=== PATIENT | female | born 1970 | race Caucasian/White ===

== ENCOUNTER 2021-08-09 06:24 | Day surgery (SDC) | payer BC ==
[2021-08-09] MEDS ORDERED: Sodium Chloride 0.9% 1,000 ML IV SCH (07:00)
[2021-08-09] MEDS ORDERED: Midazolam 1 MG/ML 2 ML SDV ONE (07:27)
[2021-08-09] MEDS ORDERED: Propofol 200 MG/20 ML SDV ONE ×2 (07:27→08:15)
[2021-08-09] MEDS ORDERED: fentaNYL 100 MCG/2 ML SDV ONE (07:27)
[2021-08-09 09:55] VITALS: BP 110/69; PULSE 72
--- NOTE | 2021-08-10 06:29 | OR ---
DATE OF PROCEDURE: 08/09/2021 SURGEON: Dima Sandoval MD PROCEDURE: Colonoscopy. FINDINGS: Significantly tortuous sigmoid colon precluding advancement of scope. PREOPERATIVE DIAGNOSIS: Positive Cologuard test. POSTOPERATIVE DIAGNOSIS: Positive Cologuard test. RISKS: Risks, benefits, alternatives, and limitations including, but not limited to infection, bleeding, perforation, false positives and false negatives were explained. The patient wished to proceed. PROCEDURE IN DETAIL: The patient was placed in the left lateral decubitus position. Digital rectal exam was performed without abnormality. Scope was introduced and advanced atraumatically. The patient had a significantly tortuous colon according to [employer]. This appeared to be a 360-degree loop. This was unable to be traversed despite multiple attempts. The scope was not blindly advanced. Over the next approximately 30 minutes, scope was attempted to gently be advanced but was unable to be completed. The patient will be sent to a higher facility with additional testing and equipment. Dima Sandoval MD /[id number]
== END 2021-08-09 10:20 | disposition home or self-care (01) ==
LOC: JP.SDS 06:24
PROVIDERS: ATTEND Surgery
DX: R19.5 Other fecal abnormalities (principal)
CPT/HCPCS: 45330; 81025; J2250; J2704; J3010; J7030

== ENCOUNTER 2022-02-03 18:39 | Emergency (ER) | payer BC ==
[2022-02-03 19:08] VITALS: BP 164/75; PULSE 81
== END 2022-02-03 19:31 | disposition home or self-care (01) ==
LOC: JP.ED 18:39
DX: S93.402A Sprain of unspecified ligament of left ankle, initial encounter (principal); X50.1XXA Overexertion from prolonged static or awkward postures, initial encounter
CPT/HCPCS: 73610-26-LT; 73610-LT; 99283

== ENCOUNTER 2023-11-03 10:19 | Emergency (ER) | payer BC ==
[2023-11-03] MEDS ORDERED: Methocarbamol 500 MG Tab PO ONE (11:11)
[2023-11-03] MEDS ORDERED: Ketorolac 30 MG/ML SDV IM ONE (11:11)
[2023-11-03 11:53] LABS: APPEARANCE,URINE CLEAR (CLEAR); BILIRUBIN,URINE NEGATIVE (NEGATIVE); COLOR,URINE YELLOW (YELLOW); GLUCOSE,URINE NEGATIVE (NEGATIVE); KETONES,URINE TRACE mg/dL (NEGATIVE); LEUKOCYTE ESTERASE,URINE NEGATIVE (NEGATIVE); NITRITE,URINE NEGATIVE (NEGATIVE); OCCULT BLOOD,URINE TRACE-INTACT (NEGATIVE); PH,URINE 5.5 (5.0-8.0); PROTEIN,URINE NEGATIVE (NEGATIVE)
[2023-11-03 12:01] LABS: AMORPHOUS SEDIMENT,URINE FEW; BACTERIA,URINE MODERATE; EPITHELIAL CELLS,URINE MODERATE; MUCUS,URINE FEW; RBC,URINE 0-5 (0-5); WBC,URINE NOT SEEN (0-5)
[2023-11-03 12:25] VITALS: BP 170/63; PULSE 80
== END 2023-11-03 12:38 | disposition home or self-care (01) ==
LOC: JP.ED 10:19
DX: M62.838 Other muscle spasm (principal); Z79.899 Other long term (current) drug therapy
CPT/HCPCS: 81001; 96372; 99284; A9270; J1885